=== PATIENT | male | born 1960 | race Caucasian/White ===

== ENCOUNTER → 2016-05-25 | Outpatient (CLI) | payer BC ==
[2016-05-25 10:05] LABS: BUN/CREATININE RATIO 13 (0-10)
== END ==
LOC: LAB 08:37
PROVIDERS: Internal Medicine Interventional Cardiology
DX: E78.1 Pure hyperglyceridemia (principal); E78.5 Hyperlipidemia, unspecified
CPT/HCPCS: 36415; 80053; 80061

== ENCOUNTER → 2020-07-15 | Outpatient (CLI) | payer BC ==
[~2020-07-15] MED LIST: EPIPEN 2-P0.3 MG/0.3 INJ
== END ==
LOC: LAB 08:14
PROVIDERS: Internal Medicine Nephrology
DX: N17.9 Acute kidney failure, unspecified (principal); E79.0 Hyperuricemia without signs of inflammatory arthritis and tophaceous disease; E55.9 Vitamin D deficiency, unspecified
CPT/HCPCS: 36415; 80053; 82570; 84156; 84550

== ENCOUNTER → 2020-08-24 | Outpatient (CLI) | payer BC ==
[2020-08-24 11:23] LABS: BUN/CREATININE RATIO 13 (0-10)
== END ==
LOC: LAB 09:07
PROVIDERS: Internal Medicine Nephrology
DX: E03.9 Hypothyroidism, unspecified (principal); N17.9 Acute kidney failure, unspecified
CPT/HCPCS: 80048; 84443

== ENCOUNTER → 2020-09-28 | Outpatient (CLI) | payer BC ==
[~2020-09-28] MED LIST changes: +ENDOCET 5-3251 EACH PO; +FLOMAX 0.4 MG0.4 MG PO; +ZOFRAN ODT 4 MG4 MG SL
== END ==
LOC: LAB 08:15
PROVIDERS: Internal Medicine Nephrology
DX: E79.0 Hyperuricemia without signs of inflammatory arthritis and tophaceous disease (principal); N17.9 Acute kidney failure, unspecified; E55.9 Vitamin D deficiency, unspecified
CPT/HCPCS: 36415; 80053; 82570; 84156; 84550

== ENCOUNTER → 2020-11-13 | Outpatient (CLI) | payer BC | LOC: EXRD 10-07 08:30 → KOH-I 15:08 | DX: N20.0 Calculus of kidney (principal) | CPT/HCPCS: 76775 ==

== ENCOUNTER 2020-11-14 14:32 | Emergency (ER) | payer BC ==
[~2020-11-14 14:32] MED LIST changes: -ENDOCET 5-3251 EACH PO; -FLOMAX 0.4 MG0.4 MG PO; -ZOFRAN ODT 4 MG4 MG SL
[2020-11-14 15:52] LABS: RED BLOOD COUNT 3.96 M/UL (4.20-5.50); WHITE BLOOD COUNT 7.9 K/UL (4.5-11.0)
[2020-11-14] MEDS ORDERED: FLOMAX 0.4 MG0.4 MG PO (19:18)
[2020-11-14] MEDS ORDERED: ENDOCET 5-3251 EACH PO (19:18)
[2020-11-14] MEDS ORDERED: ZOFRAN ODT 4 MG4 MG SL (19:18)
== END 2020-11-14 20:15 | disposition home or self-care (01) ==
LOC: ER1 14:32
PROVIDERS: Physician Assistant
DX: N13.2 Hydronephrosis with renal and ureteral calculous obstruction (principal)
CPT/HCPCS: 80053; 81001; 85025; 99284

== ENCOUNTER → 2021-01-25 | Outpatient (CLI) | payer BC ==
[~2021-01-25] MED LIST changes: +ENDOCET 5-3251 EACH PO; +FLOMAX 0.4 MG0.4 MG PO; +ZOFRAN ODT 4 MG4 MG SL
[2021-01-25 11:12] LABS: BUN/CREATININE RATIO 13 (0-10)
== END ==
LOC: LAB 09:27
PROVIDERS: Internal Medicine Nephrology
DX: N17.9 Acute kidney failure, unspecified (principal); E03.9 Hypothyroidism, unspecified; E55.9 Vitamin D deficiency, unspecified; E79.0 Hyperuricemia without signs of inflammatory arthritis and tophaceous disease
CPT/HCPCS: 36415; 80053; 82570; 84156; 84443; 84550

== ENCOUNTER 2021-03-14 01:05 | Observation (INO) | payer BC ==
[~2021-03-14] VITALS: Ht 175.3 cm; Wt 99.8 kg
[2021-03-14 02:43] LABS: HEMOGLOBIN 14.4 gm/dl (14.0-17.5); RED BLOOD COUNT 4.7 M/UL (4.20-5.50); WHITE BLOOD COUNT 17.8 K/UL (4.5-11.0)
[2021-03-14 03:44] LABS: BUN/CREATININE RATIO 11 (0-10)
[2021-03-14] MEDS ORDERED: SYNTHROID25 MCG PO (10:40)
[2021-03-14] MEDS ORDERED: LOSARTAN POTASS50 MG PO (10:41)
[2021-03-14] MEDS ORDERED: IRON325 M1 PO (10:42)
[2021-03-14] MEDS ORDERED: ZETIA10 MG PO (10:42)
[2021-03-14] MEDS ORDERED: FENOFIBRATE160 MG PO (10:48)
[2021-03-14] MEDS ORDERED: ATENOLOL25 MG PO (10:49)
[2021-03-14] MEDS ORDERED: VITAMIN D21250 MCG PO (11:08)
[2021-03-16] MEDS ORDERED: HYDROCODON-ACE1 EAC4 PO (14:12)
== END 2021-03-16 16:35 | disposition home or self-care (01) ==
LOC: ER1 01:05 → CDU 05:41 → MED SURG 4 09:29
PROVIDERS: Physician Assistant; ADMIT Surgery
PROC: 0DTJ4ZZ Resection of Appendix, Percutaneous Endoscopic Approach (ICD-10-PCS; principal; 2021-03-14 08:07)
DX: K35.31 Acute appendicitis with localized peritonitis and gangrene, without perforation (principal); I10 Essential (primary) hypertension; E78.5 Hyperlipidemia, unspecified; E03.9 Hypothyroidism, unspecified; E66.9 Obesity, unspecified; Z20.822 Contact with and (suspected) exposure to COVID-19; Z91.013 Allergy to seafood; Z87.442 Personal history of urinary calculi
CPT/HCPCS: 36415; 80048; 80053; 81001; 83605; 83690; 85025; 87086; 96374; 96375; 96376; 99284; G0378; J0690; J1100; J1170; J1335; J2001; J2250; J2270; J2370; J2405; J2543; J2704; J2710; J2765; J3010; J7030; J7120; Q9967; U0002

== ENCOUNTER 2021-03-26 21:35 | Emergency (ER) | payer BC ==
[~2021-03-26 21:35] MED LIST changes: +ATENOLOL25 MG PO; +FENOFIBRATE160 MG PO; +HYDROCODON-ACE1 EAC4 PO; +IRON325 M1 PO; +LOSARTAN POTASS50 MG PO; +SYNTHROID25 MCG PO; +VITAMIN D21250 MCG PO; +ZETIA10 MG PO
== END 2021-03-26 22:25 | disposition left against medical advice (07) ==
LOC: ER1 21:35
DX: Z53.21 Procedure and treatment not carried out due to patient leaving prior to being seen by health care provider (principal)

== ENCOUNTER → 2021-04-16 | Outpatient (CLI) | payer BC ==
[2021-04-16 13:37] LABS: HEMOGLOBIN 11.4 gm/dl (14.0-17.5); RED BLOOD COUNT 3.91 M/UL (4.20-5.50); WHITE BLOOD COUNT 5.2 K/UL (4.5-11.0)
[2021-04-16 15:34] LABS: BUN/CREATININE RATIO 13 (0-10)
[2021-04-17 08:14] LABS: FSH 13.3 mIU/mL (1.5-12.4); LUTEINIZING HORMONE(LH) 11.3 mIU/mL (1.7-8.6); PROLACTIN 7.8 ng/mL (4.0-15.2); SEX HORM BINDING GLOB, SERUM 40.3 nmol/L (19.3-76.4); VITAMIN D, 25-HYDROXY 29.6 ng/mL (30.0-100.0)
[2021-04-18 07:10] LABS: TESTOSTERONE, SERUM 392 ng/dL (264-916)
[2021-04-20 13:09] LABS: ESTROGENS, TOTAL 95 pg/mL (56-213)
== END ==
LOC: LAB 12:53
PROVIDERS: Family Medicine
DX: Z12.5 Encounter for screening for malignant neoplasm of prostate (principal); E78.5 Hyperlipidemia, unspecified; E29.1 Testicular hypofunction; E55.9 Vitamin D deficiency, unspecified
CPT/HCPCS: 36415; 80053; 80061; 82672; 83001; 83002; 84146; 84153; 84270; 84402; 84403; 84439; 84443; 85027

== ENCOUNTER → 2021-05-20 | Outpatient (CLI) | payer BC ==
[2021-05-20 11:22] LABS: BUN/CREATININE RATIO 13 (0-10)
== END ==
LOC: LAB 10:40
PROVIDERS: Internal Medicine Nephrology
DX: N17.9 Acute kidney failure, unspecified (principal); E03.9 Hypothyroidism, unspecified; E79.0 Hyperuricemia without signs of inflammatory arthritis and tophaceous disease; E55.9 Vitamin D deficiency, unspecified
CPT/HCPCS: 36415; 80053; 82570; 84156; 84443; 84550

== ENCOUNTER 2021-08-09 09:03 | Emergency (ER) | payer BC ==
[2021-08-09 10:01] LABS: HEMOGLOBIN 13.5 gm/dl (14.0-17.5); RED BLOOD COUNT 4.58 M/UL (4.20-5.50); WHITE BLOOD COUNT 12.7 K/UL (4.5-11.0)
[2021-08-09] MEDS ORDERED: ZOFRAN ODT 4 MG4 MG SL (11:49)
[2021-08-09] MEDS ORDERED: ENDOCET 5-3251 EACH PO (11:49)
== END 2021-08-09 12:55 | disposition home or self-care (01) ==
LOC: ER1 09:03
PROVIDERS: Emergency Medicine
DX: N13.2 Hydronephrosis with renal and ureteral calculous obstruction (principal); Z87.442 Personal history of urinary calculi
CPT/HCPCS: 80053; 81001; 83690; 85025; 96374; 96375; 99284; J1885; J2270; J2405; J7030; Q9967

== ENCOUNTER 2021-08-12 22:27 | Emergency (ER) | payer BC ==
[2021-08-12 23:34] LABS: HEMOGLOBIN 12.3 gm/dl (14.0-17.5); RED BLOOD COUNT 4.14 M/UL (4.20-5.50); WHITE BLOOD COUNT 10.5 K/UL (4.5-11.0)
[2021-08-12 23:36] LABS: BUN/CREATININE RATIO 14 (0-10)
== END 2021-08-13 01:10 | disposition home or self-care (01) ==
LOC: ER1 22:27
PROVIDERS: Physician Assistant
DX: N20.1 Calculus of ureter (principal); I10 Essential (primary) hypertension; Z87.442 Personal history of urinary calculi
CPT/HCPCS: 80048; 81001; 85025; 96361; 96374; 96375; 99284; J1885; J2270; J2405; J7030